=== PATIENT | male | born 1960 | race Caucasian/White ===

== ENCOUNTER → 2016-09-19 | Outpatient (CLI) | payer BC ==
[~2016-09-19] MED LIST: ALBU18HF2 INH; AMLO5TAB2 PO; ASPI-557 PO; CALC0.5C2 PO; CLIN-89 PO; EPLE50TA11 PO; FURO20TA4 PO; HYDR100T9 PO; INSU100V3 SQ; LORA-326 PO; MERC50TA PO; MESA400C PO; METO-68 PO; NITR1OIN2 TOP; OLOP2.5D BOTH EYES; POTA10TA18 PO; VALS320T7 PO
[2016-09-19 18:16] LABS: BASOPHILS # (AUTO) 0.1 T/MM3 (0-0.2); EOSINOPHILS # (AUTO) 0.1 T/MM3 (0-0.5); EOSINOPHILS % (AUTO) 1.8 % (0-4); HCT - HEMATOCRIT 37.3 % (41-53); HGB - HEMOGLOBIN 12.4 GM/DL (13.5-17.5); IMMATURE GRANULOCYTE # (AUTO) 0.03 T/MM3 (0.00-0.03); IMMATURE GRANULOCYTE % (AUTO) 0.5 % (0.0-0.5); LYMPHOCYTES # (AUTO) 1.3 T/MM3 (1-4.8); LYMPHOCYTES % (AUTO) 20.4 % (23-45); MEAN CORPUSCULAR HGB 32.5 UUG (26-34); MEAN CORPUSCULAR HGB CONC(MCHC 33.2 GM/DL (31-37); MEAN CORPUSCULAR VOLUME 97.9 UM3 (80-100); MEAN PLATELET VOLUME 10.1 UM3 (9.4-12.4); MONOCYTES # (AUTO) 0.7 T/MM3 (0-0.8); MONOCYTES % (AUTO) 11.1 % (0-9.0); NEUTROPHILS #(AUTO)-ABSOLUTE 4.1 T/MM3 (1.8-7.7); NEUTROPHILS % (AUTO) 65.2 % (33-66); RED BLOOD COUNT 3.81 M/MM3 (4.50-5.90); WBC - WHITE BLOOD COUNT 6.2 T/MM3 (4.5-11.0)
[2016-09-19 18:24] LABS: ANION GAP 13 MEQ/L (5-15); BUN/CREATININE RATIO 17 RATIO (6-26); CALCIUM 9.8 MG/DL (8.4-10.2); CHLORIDE 105 MEQ/L (98-107); CO2 - CARBON DIOXIDE 29 MEQ/L (22-30); CREATININE 2.4 MG/DL (0.8-1.5); GLOMERULAR FILTRATION RATE 28; GLUCOSE 61 MG/DL (75-110); POTASSIUM 3.3 MEQ/L (3.6-5); SODIUM 147 MEQ/L (134-144)
== END ==
LOC: LAB.WIC 17:47 → LAB 17:47
PROVIDERS: ATTEND Physician Assistant
DX: R50.9 Fever, unspecified (principal)
CPT/HCPCS: 36415; 80048; 85025